=== PATIENT | male | born 1935 | race African-American/Black ===

== ENCOUNTER 2017-03-27 08:21 | Observation (INO) | payer MEDICARE, OTHER ==
[~2017-03-27] VITALS: Ht 170.2 cm; Wt 101.6 kg
[~2017-03-27 08:21] MED LIST: ASPI-1035 PO; ATOR10TA PO; BENA40TA3 PO; CARV3.1242 PO; DOCU-150 PO; FEBU40TA PO; FOLI-43 PO; FOLI0.8T23 PO; GLIP5TAB12 PO; HYDR-4134 PO; MINO2.5T19 PO; NIFE30TA8 PO; NITR0.4T3 SL; TAMS0.4C31 PO; VIT1TABL71 PO
[2017-03-27] MEDS ORDERED: FUROSEMIDE 40MG/4ML VIAL IV STA (09:09)
[2017-03-27] MEDS ORDERED: ALBUTEROL (0.083%) 2.5MG/3ML NEB HHN STA (09:09)
[2017-03-27] MEDS ORDERED: ASPIRIN 81MG TABLET PO STA (09:09)
[2017-03-27] MEDS ORDERED: IPRATROPIUM BROMIDE (0.02%) 0.5MG/2.5ML NEB HHN STA (09:09)
[2017-03-27 10:08] LABS: INR 1.1; PARTIAL THROMBOPLASTIN TIME 28.9 sec (24.0-34.0); PROTHROMBIN TIME 11.1 sec
[2017-03-27 10:09] LABS: CLARITY URINE CLEAR (CLEAR); COLOR URINE YELLOW (YELLOW); GLUCOSE URINE NEGATIVE (NEGATIVE); KETONES URINE NEGATIVE (NEGATIVE); LEUKOCYTE ESTERASE URINE NEGATIVE (NEGATIVE); NITRITE URINE NEGATIVE (NEGATIVE); OCCULT BLOOD URINE NEGATIVE (NEGATIVE); PROTEIN URINE 1+ (NEGATIVE); SPECIFIC GRAVITY URINE 1.015 (1.005-1.030); UROBILINOGEN URINE 0.2 E.U./dL (0.2-1.0)
[2017-03-27 10:12] LABS: CARBON DIOXIDE 20 mEq/L (21-32); CHLORIDE 111 mEq/L (98-107); CREATINE KINASE 53 IU/L (39-308)
[2017-03-27 10:13] LABS: TROPONIN I 0.03 ng/mL (0.00-0.04)
[2017-03-27 10:14] LABS: BASOPHILS % 0.5 % (0.0-2.0); EOSINOPHILS % 0.6 % (0.0-5.0); HEMATOCRIT. 31.1 % (42.0-52.0); HEMOGLOBIN. 9.9 g/dL (14.0-18.0); LYMPHOCYTES % 8.4 % (20.0-50.0); MEAN CORPUSCULAR HEMOGLOBIN 27.6 pg (28.0-32.0); MEAN CORPUSCULAR VOLUME 86.5 fL (80.0-94.0); MEAN PLATELET VOLUME 8.6 fl (7.4-10.4); MONOCYTES % 4.2 % (2.0-8.0); NEUTROPHILS % 86.3 % (40.0-76.0); PLATELET 209 x1000/uL (130-400); RED BLOOD CELL COUNT 3.59 mill/uL (4.7-6.1); RED CELL DISTRIBUTION WIDTH 17.4 % (11.6-14.6)
[2017-03-27] MEDS ORDERED: PIPERACILLIN/TAZ 3.375G PREMIX 50 ML IV ONE (10:30)
[2017-03-27] MEDS ORDERED: VANCOMYCIN 1 G PREMIX 200 ML IV SCH (10:30)
[2017-03-27 13:56] VITALS: BP 188/76
[2017-03-27] MEDS ORDERED: DEXTROSE 50% WATER 50ML SYRINGE IV PRN (16:00)
[2017-03-27] MEDS ORDERED: IPRATROPIUM/ALBUTEROL 0.5-3(2.5)MG/3ML NEB HHN PRN (16:00)
[2017-03-27] MEDS: BLOOD SUGAR DIAGNOSTIC STRIP TEST SCH ×2 (16:51→20:36)
[2017-03-27] MEDS: INSULIN LISPRO 100 UNITS/ML SUBCUT SCH ×2 (16:52→20:36)
[2017-03-27] MEDS: HYDRALAZINE HCL 25MG TABLET PO SCH ×2 (19:21→23:53)
[2017-03-27 20:00] VITALS: BP 193/73
[2017-03-27] MEDS: TAMSULOSIN HCL 0.4MG SR CAPSULE PO SCH (20:37)
[2017-03-27] MEDS: ATORVASTATIN CALCIUM 10MG TABLET PO SCH (20:37)
[2017-03-27] MEDS: CARVEDILOL 3.125 MG TABLET PO SCH (20:37)
[2017-03-28] VITALS: BP 188/80
[2017-03-28 04:00] VITALS: BP 157/80
[2017-03-28] MEDS: HYDRALAZINE HCL 25MG TABLET PO SCH ×3 (05:52→17:48)
[2017-03-28] MEDS: INSULIN LISPRO 100 UNITS/ML SUBCUT SCH ×4 (05:56→20:16)
[2017-03-28] MEDS: BLOOD SUGAR DIAGNOSTIC STRIP TEST SCH ×4 (05:56→20:16)
[2017-03-28] MEDS: NIFEDIPINE XL 30MG TAB PO SCH (08:27)
[2017-03-28] MEDS: FUROSEMIDE 40MG/4ML VIAL IVP SCH (08:27)
[2017-03-28] MEDS: FOLIC ACID 1MG TABLET PO SCH (08:27)
[2017-03-28] MEDS: ASPIRIN 81MG EC TABLET PO SCH (08:28)
[2017-03-28] MEDS: CARVEDILOL 3.125 MG TABLET PO SCH ×2 (08:28→20:16)
[2017-03-28] MEDS: FOLIC ACID/VITAMIN B COMP W-C TABLET PO SCH (08:28)
[2017-03-28] MEDS: DOCUSATE SODIUM 100MG CAPSULE PO SCH (08:28)
[2017-03-28] MEDS: ENOXAPARIN 40MG/0.4ML SYR SUBCUT SCH (08:31)
[2017-03-28 08:45] VITALS: BP 153/76
[2017-03-28] MEDS ORDERED: FEBUXOSTAT 40 MG PO SCH (09:00)
[2017-03-28] MEDS ORDERED: LISINOPRIL 40MG TABLET PO SCH (09:00)
[2017-03-28 09:02] LABS: BASOPHILS % 0.5 % (0.0-2.0); EOSINOPHILS % 1.8 % (0.0-5.0); HEMATOCRIT. 29.9 % (42.0-52.0); HEMOGLOBIN. 9.7 g/dL (14.0-18.0); LYMPHOCYTES % 14.1 % (20.0-50.0); MEAN CORPUSCULAR VOLUME 85.7 fL (80.0-94.0); MEAN PLATELET VOLUME 8.8 fl (7.4-10.4); MONOCYTES % 7.1 % (2.0-8.0); NEUTROPHILS % 76.5 % (40.0-76.0); PLATELET 169 x1000/uL (130-400); RED BLOOD CELL COUNT 3.48 mill/uL (4.7-6.1); RED CELL DISTRIBUTION WIDTH 17.4 % (11.6-14.6)
[2017-03-28 11:50] VITALS: BP 141/65
[2017-03-28] MEDS: BENAZEPRIL 20MG TABLET PO SCH ×2 (14:19→20:14)
[2017-03-28 15:58] VITALS: BP 167/98
[2017-03-28 20:00] VITALS: BP 147/82
[2017-03-28] MEDS: ATORVASTATIN CALCIUM 10MG TABLET PO SCH (20:14)
[2017-03-28] MEDS: TAMSULOSIN HCL 0.4MG SR CAPSULE PO SCH (20:15)
[2017-03-29] MEDS: HYDRALAZINE HCL 25MG TABLET PO SCH ×3 (00:22→12:52)
[2017-03-29] MEDS: INSULIN LISPRO 100 UNITS/ML SUBCUT SCH ×2 (06:08→12:13)
[2017-03-29] MEDS: BLOOD SUGAR DIAGNOSTIC STRIP TEST SCH ×2 (06:08→12:13)
[2017-03-29 07:02] LABS: BASOPHILS % 0.6 % (0.0-2.0); EOSINOPHILS % 3.7 % (0.0-5.0); HEMATOCRIT. 29.1 % (42.0-52.0); HEMOGLOBIN. 9.6 g/dL (14.0-18.0); LYMPHOCYTES % 14.3 % (20.0-50.0); MEAN CORPUSCULAR HEMOGLOBIN 28.3 pg (28.0-32.0); MEAN CORPUSCULAR VOLUME 85.2 fL (80.0-94.0); MONOCYTES % 7.9 % (2.0-8.0); NEUTROPHILS % 73.5 % (40.0-76.0); PLATELET 161 x1000/uL (130-400); RED BLOOD CELL COUNT 3.41 mill/uL (4.7-6.1); RED CELL DISTRIBUTION WIDTH 17.2 % (11.6-14.6)
[2017-03-29 07:41] LABS: CARBON DIOXIDE 22 mEq/L (21-32); CHLORIDE 108 mEq/L (98-107); TROPONIN I 0.04 ng/mL (0.00-0.04)
[2017-03-29 08:00] VITALS: BP 155/69
[2017-03-29] MEDS: FUROSEMIDE 40MG/4ML VIAL IVP SCH (10:18)
[2017-03-29] MEDS: NIFEDIPINE XL 30MG TAB PO SCH (10:19)
[2017-03-29] MEDS: ENOXAPARIN 40MG/0.4ML SYR SUBCUT SCH (10:19)
[2017-03-29] MEDS: FOLIC ACID/VITAMIN B COMP W-C TABLET PO SCH (10:20)
[2017-03-29] MEDS: DOCUSATE SODIUM 100MG CAPSULE PO SCH (10:20)
[2017-03-29] MEDS: FOLIC ACID 1MG TABLET PO SCH (10:20)
[2017-03-29] MEDS: ASPIRIN 81MG EC TABLET PO SCH (10:20)
[2017-03-29] MEDS: BENAZEPRIL 20MG TABLET PO SCH (10:20)
[2017-03-29] MEDS: CARVEDILOL 3.125 MG TABLET PO SCH (10:20)
[2017-03-29 12:00] VITALS: BP 175/80
[2017-03-29 12:35] VITALS: BP 175/80
== END 2017-03-29 13:32 | disposition home or self-care (01) ==
LOC: ER 09:11 → 5WST 10:53 → INTOOBSV 10:53
PROVIDERS: ADMIT Internal Medicine; ATTEND Internal Medicine
DX: I50.23 Acute on chronic systolic (congestive) heart failure (principal); I13.0 Hypertensive heart and chronic kidney disease with heart failure and stage 1 through stage 4 chronic kidney disease, or unspecified chronic kidney disease; N18.9 Chronic kidney disease, unspecified; J44.9 Chronic obstructive pulmonary disease, unspecified; E11.22 Type 2 diabetes mellitus with diabetic chronic kidney disease; Z90.49 Acquired absence of other specified parts of digestive tract; I42.0 Dilated cardiomyopathy; M79.89 Other specified soft tissue disorders; E78.5 Hyperlipidemia, unspecified; R06.01 Orthopnea
CPT/HCPCS: 36415; 71010; 80048; 80053; 81001; 82550; 82962; 83605; 83690; 83735; 83880; 84443; 84484; 85025; 85379; 85610; 85730; 87040; 93005; 93306; 93970; 94640; 96365; 96366; 96367; 96372; 96375; 96376; 99285; G0378; J1650; J1940; J2543; J3370; J7611; J7620

== ENCOUNTER 2017-08-30 20:26 | Inpatient (IN) | payer MEDICARE, OTHER ==
[~2017-08-30] VITALS: Ht 170.2 cm; Wt 98.4 kg
[~2017-08-30 20:26] MED LIST changes: -ASPI-1035 PO; +ASPI-1159 PO; -NITR0.4T3 SL; +NITR0.4T49 SL
[2017-08-30] MEDS ORDERED: FUROSEMIDE 40MG/4ML VIAL IV STA (21:37)
[2017-08-30] MEDS ORDERED: IPRATROPIUM/ALBUTEROL 0.5-3(2.5)MG/3ML NEB HHN ONE (21:45)
[2017-08-30 22:06] LABS: BASOPHILS % 0.2 % (0.0-2.0); EOSINOPHILS % 0.9 % (0.0-5.0); HEMATOCRIT. 33.9 % (42.0-52.0); HEMOGLOBIN. 10.7 g/dL (14.0-18.0); LYMPHOCYTES % 8.9 % (20.0-50.0); MEAN CORPUSCULAR HEMOGLOBIN 26.6 pg (28.0-32.0); MEAN CORPUSCULAR VOLUME 84.1 fL (80.0-94.0); MEAN PLATELET VOLUME 8.2 fl (7.4-10.4); MONOCYTES % 6.2 % (2.0-8.0); NEUTROPHILS % 83.8 % (40.0-76.0); PLATELET 180 x1000/uL (130-400); RED BLOOD CELL COUNT 4.03 mill/uL (4.7-6.1); RED CELL DISTRIBUTION WIDTH 18.5 % (11.6-14.6)
[2017-08-30 22:14] LABS: CARBON DIOXIDE 23 mEq/L (21-32); CHLORIDE 104 mEq/L (98-107)
[2017-08-30 22:16] LABS: INR 1.1; PROTHROMBIN TIME 11.1 sec (9.4-11.6)
[2017-08-30 22:21] LABS: TROPONIN I 0.03 ng/mL (0.00-0.04)
[2017-08-31 08:00] VITALS: BP 170/56
[2017-08-31] MEDS ORDERED: UMEC1DIS IH (09:40)
[2017-08-31] MEDS ORDERED: CARV6.2548 PO (09:42)
[2017-08-31] MEDS ORDERED: SIMV40TA5 PO (09:43)
[2017-08-31] MEDS ORDERED: FURO40TA5 PO (09:44)
[2017-08-31 09:45] VITALS: BP 170/56
[2017-08-31] MEDS ORDERED: NIFE30TA94 PO (09:45)
[2017-08-31] MEDS ORDERED: VIT1TABL71 PO (09:46)
[2017-08-31] MEDS ORDERED: ONDANSETRON HCL 4MG/2ML VIAL IV PRN (10:00)
[2017-08-31] MEDS ORDERED: MORPHINE SULFATE 10 MG/ML CPJ IV PRN (10:00)
[2017-08-31 12:00] VITALS: BP 192/65
[2017-08-31] MEDS: AMLODIPINE 10MG TABLET PO SCH (12:00)
[2017-08-31 15:11] LABS: CREATINE KINASE MB FRACTION 1.6 ng/mL (0.5-3.6); TROPONIN I 0.03 ng/mL (0.00-0.04)
[2017-08-31 16:00] VITALS: BP 192/74
[2017-08-31 18:50] LABS: CREATINE KINASE MB FRACTION 0.9 ng/mL (0.5-3.6); TROPONIN I 0.04 ng/mL (0.00-0.04)
[2017-08-31 20:00] VITALS: BP 171/63
[2017-08-31] MEDS: CLONIDINE 0.1MG TABLET PO PRN (20:40)
[2017-09-01] VITALS: BP 167/65
[2017-09-01 04:00] VITALS: BP 155/56
[2017-09-01] MEDS ORDERED: NIFE60TA64 PO (04:06)
[2017-09-01 08:00] VITALS: BP 166/58
[2017-09-01] MEDS ORDERED: ENOXAPARIN 40MG/0.4ML SYR SUBCUT SCH (09:00)
[2017-09-01] MEDS ORDERED: FUROSEMIDE 40MG/4ML VIAL IVP SCH (09:00)
[2017-09-01] MEDS ORDERED: ASPIRIN 81MG TABLET PO SCH (09:00)
[2017-09-01] MEDS: AMLODIPINE 10MG TABLET PO SCH (10:01)
[2017-09-01] MEDS ORDERED: DEXTROSE 50% WATER 50ML SYRINGE IV PRN (11:45)
[2017-09-01 11:55] VITALS: BP 169/64
[2017-09-01] MEDS: CLONIDINE 0.1MG TABLET PO PRN (11:59)
[2017-09-01] MEDS ORDERED: BLOOD SUGAR DIAGNOSTIC STRIP TEST SCH (12:10)
[2017-09-01] MEDS ORDERED: INSULIN LISPRO 100 UNITS/ML SUBCUT SCH (12:40)
[2017-09-01 12:44] LABS: BASOPHILS % 0.5 % (0.0-2.0); EOSINOPHILS % 1.3 % (0.0-5.0); HEMATOCRIT. 29.5 % (42.0-52.0); HEMOGLOBIN. 9.7 g/dL (14.0-18.0); LYMPHOCYTES % 12.3 % (20.0-50.0); MEAN CORPUSCULAR HEMOGLOBIN 26.9 pg (28.0-32.0); MEAN PLATELET VOLUME 8.9 fl (7.4-10.4); NEUTROPHILS % 78.9 % (40.0-76.0); PLATELET 158 x1000/uL (130-400); RED CELL DISTRIBUTION WIDTH 18.1 % (11.6-14.6)
[2017-09-01] MEDS ORDERED: BENAZEPRIL 20MG TABLET PO SCH (15:30)
[2017-09-01 15:37] VITALS: BP 129/69
[2017-09-01 16:00] VITALS: BP 129/69
== END 2017-09-01 16:38 | disposition home or self-care (01) | DRG 291 ==
LOC: ER 22:18 → 8WST 08-31 00:29
PROVIDERS: ADMIT Internal Medicine; ATTEND Internal Medicine
DX: I13.0 Hypertensive heart and chronic kidney disease with heart failure and stage 1 through stage 4 chronic kidney disease, or unspecified chronic kidney disease (principal); I50.23 Acute on chronic systolic (congestive) heart failure; N17.9 Acute kidney failure, unspecified; E11.22 Type 2 diabetes mellitus with diabetic chronic kidney disease; E66.9 Obesity, unspecified; E78.5 Hyperlipidemia, unspecified; N18.9 Chronic kidney disease, unspecified; N40.0 Benign prostatic hyperplasia without lower urinary tract symptoms; Z90.49 Acquired absence of other specified parts of digestive tract; Z95.0 Presence of cardiac pacemaker; Z79.82 Long term (current) use of aspirin; Z79.899 Other long term (current) drug therapy; Z68.34 Body mass index [BMI] 34.0-34.9, adult
CPT/HCPCS: 36415; 71010; 80048; 80053; 82550; 82553; 82962; 83605; 83880; 84484; 85025; 85610; 85730; 87040; 93005; 94640; 96374; 99285; J1650; J1815; J1940; J7620

== ENCOUNTER 2017-09-19 10:28 | Inpatient (IN) | payer MEDICARE, OTHER ==
[~2017-09-19] VITALS: Ht 170.2 cm; Wt 97.7 kg
[~2017-09-19 10:28] MED LIST changes: +CARV6.2548 PO; +FURO40TA5 PO; +NIFE30TA94 PO; +NIFE60TA64 PO; +SIMV40TA5 PO; +UMEC1DIS IH
[2017-09-19] MEDS ORDERED: NITROGLYCERIN OINT 1GM/INCH UDPKT TD STA (10:52)
[2017-09-19] MEDS ORDERED: FUROSEMIDE 40MG/4ML VIAL IV STA (10:52)
[2017-09-19 11:39] LABS: BASOPHILS % 0.2 % (0.0-2.0); EOSINOPHILS % 0.3 % (0.0-5.0); HEMATOCRIT. 33.4 % (42.0-52.0); HEMOGLOBIN. 10.7 g/dL (14.0-18.0); LYMPHOCYTES % 10.7 % (20.0-50.0); MEAN CORPUSCULAR VOLUME 84.2 fL (80.0-94.0); MEAN PLATELET VOLUME 8.4 fl (7.4-10.4); MONOCYTES % 7.3 % (2.0-8.0); NEUTROPHILS % 81.5 % (40.0-76.0); PLATELET 203 x1000/uL (130-400); RED BLOOD CELL COUNT 3.97 mill/uL (4.7-6.1); RED CELL DISTRIBUTION WIDTH 17.2 % (11.6-14.6)
[2017-09-19 11:47] LABS: INR 1.1; PROTHROMBIN TIME 11.8 sec (9.4-11.6)
[2017-09-19 11:56] LABS: CARBON DIOXIDE 22 mEq/L (21-32); CHLORIDE 105 mEq/L (98-107); TROPONIN I 0.04 ng/mL (0.00-0.04)
[2017-09-19 20:15] VITALS: BP 170/62
[2017-09-19 21:46] VITALS: BP 170/62
[2017-09-19] MEDS ORDERED: CLONIDINE 0.1MG TABLET PO PRN (22:45)
[2017-09-19] MEDS ORDERED: DEXTROSE 50% WATER 50ML SYRINGE IV PRN (22:45)
[2017-09-20] VITALS: BP 151/55
[2017-09-20] MEDS ORDERED: VIT1TABL71 PO (00:54)
[2017-09-20 04:00] VITALS: BP 150/54
[2017-09-20] MEDS ORDERED: INFLUENZA VIRUS VACCINE 0.5ML SYR IM ONE (06:00)
[2017-09-20 06:07] LABS: BASOPHILS % 0.4 % (0.0-2.0); EOSINOPHILS % 0.9 % (0.0-5.0); HEMATOCRIT. 28.6 % (42.0-52.0); HEMOGLOBIN. 9.2 g/dL (14.0-18.0); LYMPHOCYTES % 9.6 % (20.0-50.0); MEAN CORPUSCULAR HEMOGLOBIN 26.9 pg (28.0-32.0); MEAN CORPUSCULAR VOLUME 83.4 fL (80.0-94.0); MEAN PLATELET VOLUME 8.9 fl (7.4-10.4); MONOCYTES % 7.6 % (2.0-8.0); NEUTROPHILS % 81.5 % (40.0-76.0); PLATELET 166 x1000/uL (130-400); RED BLOOD CELL COUNT 3.43 mill/uL (4.7-6.1); RED CELL DISTRIBUTION WIDTH 17.5 % (11.6-14.6)
[2017-09-20] MEDS: FUROSEMIDE 40MG/4ML VIAL IVP SCH ×3 (06:23→21:28)
[2017-09-20] MEDS: HYDRALAZINE HCL 50MG TABLET PO SCH ×3 (06:23→22:32)
[2017-09-20] MEDS: BLOOD SUGAR DIAGNOSTIC STRIP TEST SCH ×4 (06:26→21:27)
[2017-09-20] MEDS: INSULIN LISPRO 100 UNITS/ML SUBCUT SCH ×4 (07:43→21:00)
[2017-09-20 08:00] VITALS: BP 175/63
[2017-09-20] MEDS ORDERED: IPRATROPIUM/ALBUTEROL 0.5-3(2.5)MG/3ML NEB HHN SCH (09:00)
[2017-09-20] MEDS: CARVEDILOL 12.5MG TABLET PO SCH ×2 (09:08→21:29)
[2017-09-20] MEDS: LOSARTAN POTASSIUM 50 MG TABLET PO SCH (09:08)
[2017-09-20] MEDS: ENOXAPARIN 40MG/0.4ML SYR SUBCUT SCH (09:09)
[2017-09-20] MEDS ORDERED: ACETAMINOPHEN 325MG TABLET PO PRN (10:00)
[2017-09-20] MEDS: PIPERACILLIN/TAZOBACTAM 2.25 G in DEXTROSE 5% WATER 50 ML IV SCH ×2 (11:51→20:08)
[2017-09-20 12:00] VITALS: BP 111/57
[2017-09-20] MEDS ORDERED: POTASSIUM CHLORIDE 10MEQ TABLET SR PO SCH (12:30)
[2017-09-20] MEDS ORDERED: FUROSEMIDE 40MG/4ML VIAL IVP NR (12:30)
[2017-09-20 16:00] VITALS: BP 98/47
[2017-09-20] MEDS: IPRATROPIUM/ALBUTEROL 0.5-3(2.5)MG/3ML NEB HHN SCH ×2 (16:26→20:40)
[2017-09-20 20:00] VITALS: BP 115/44
[2017-09-21] VITALS: BP 123/79
[2017-09-21] MEDS: IPRATROPIUM/ALBUTEROL 0.5-3(2.5)MG/3ML NEB HHN SCH ×4 (00:48→12:31)
[2017-09-21 04:00] VITALS: BP 132/53
[2017-09-21] MEDS: PIPERACILLIN/TAZOBACTAM 2.25 G in DEXTROSE 5% WATER 50 ML IV SCH (04:30)
[2017-09-21] MEDS: HYDRALAZINE HCL 50MG TABLET PO SCH (05:51)
[2017-09-21] MEDS: BLOOD SUGAR DIAGNOSTIC STRIP TEST SCH ×2 (05:55→12:47)
[2017-09-21] MEDS: FUROSEMIDE 40MG/4ML VIAL IVP SCH (05:57)
[2017-09-21 07:21] LABS: BASOPHILS % 0.5 % (0.0-2.0); EOSINOPHILS % 2.4 % (0.0-5.0); HEMOGLOBIN. 8.9 g/dL (14.0-18.0); LYMPHOCYTES % 9.8 % (20.0-50.0); MEAN CORPUSCULAR VOLUME 82.5 fL (80.0-94.0); MEAN PLATELET VOLUME 8.9 fl (7.4-10.4); MONOCYTES % 4.4 % (2.0-8.0); NEUTROPHILS % 82.9 % (40.0-76.0); PLATELET 150 x1000/uL (130-400); RED BLOOD CELL COUNT 3.28 mill/uL (4.7-6.1); RED CELL DISTRIBUTION WIDTH 17.3 % (11.6-14.6)
[2017-09-21 08:00] VITALS: BP 135/50
[2017-09-21] MEDS: INSULIN LISPRO 100 UNITS/ML SUBCUT SCH (08:10)
[2017-09-21 09:25] LABS: CARBON DIOXIDE 23 mEq/L (21-32); CHLORIDE 103 mEq/L (98-107)
[2017-09-21] MEDS: LOSARTAN POTASSIUM 50 MG TABLET PO SCH (09:33)
[2017-09-21] MEDS: CARVEDILOL 12.5MG TABLET PO SCH (09:33)
[2017-09-21] MEDS: ENOXAPARIN 40MG/0.4ML SYR SUBCUT SCH (09:34)
[2017-09-21] MEDS ORDERED: PIPERACILLIN/TAZ 3.375G PREMIX 50 ML IV SCH (10:00)
[2017-09-21 12:00] VITALS: BP 139/60
[2017-09-21 14:11] VITALS: BP 139/59
== END 2017-09-21 14:20 | disposition home or self-care (01) | DRG 291 ==
LOC: ER 10:28 → 7WST 12:32 → EDBEDREQ 12:34 → ENRESERV 19:16
PROVIDERS: ADMIT Internal Medicine; ATTEND Internal Medicine
DX: I13.0 Hypertensive heart and chronic kidney disease with heart failure and stage 1 through stage 4 chronic kidney disease, or unspecified chronic kidney disease (principal); I50.23 Acute on chronic systolic (congestive) heart failure; E11.22 Type 2 diabetes mellitus with diabetic chronic kidney disease; D64.9 Anemia, unspecified; J44.9 Chronic obstructive pulmonary disease, unspecified; E66.9 Obesity, unspecified; I25.10 Atherosclerotic heart disease of native coronary artery without angina pectoris; I25.5 Ischemic cardiomyopathy; N18.9 Chronic kidney disease, unspecified; Z87.891 Personal history of nicotine dependence; Z90.49 Acquired absence of other specified parts of digestive tract; Z91.14 Patient's other noncompliance with medication regimen; Z95.810 Presence of automatic (implantable) cardiac defibrillator; Z79.899 Other long term (current) drug therapy
CPT/HCPCS: 36415; 71010; 80048; 80053; 80061; 82962; 83036; 83605; 83690; 83880; 84443; 84484; 85025; 85610; 87040; 90686; 93005; 94640; 94664; 96374; 99285; C1893; J1650; J1815; J1940; J2543; J7040; J7060; J7620

== ENCOUNTER 2018-05-01 10:59 | Observation (INO) | payer MEDICARE, MEDICAID ==
[~2018-05-01] VITALS: Ht 170.2 cm; Wt 97.1 kg
[~2018-05-01 10:59] MED LIST changes: -BENA40TA3 PO; -CARV3.1242 PO; -CARV6.2548 PO; -GLIP5TAB12 PO; -HYDR-4134 PO; -MINO2.5T19 PO; -NIFE30TA8 PO; -NIFE30TA94 PO; -NIFE60TA64 PO; -UMEC1DIS IH
[2018-05-01 12:52] LABS: CHLORIDE 104 mEq/L (98-107); EOSINOPHILS % 3.7 % (0.0-5.0); HEMATOCRIT. 29.7 % (42.0-52.0); HEMOGLOBIN. 9.3 g/dL (14.0-18.0); MEAN CORPUSCULAR HEMOGLOBIN 24.9 pg (28.0-32.0); MEAN CORPUSCULAR VOLUME 79.5 fL (80.0-94.0); MEAN PLATELET VOLUME 7.5 fl (7.4-10.4); MONOCYTES % 8.3 % (2.0-8.0); PLATELET 181 x1000/uL (130-400); RED BLOOD CELL COUNT 3.74 mill/uL (4.7-6.1); RED CELL DISTRIBUTION WIDTH 22.8 % (11.6-14.6)
[2018-05-01 12:54] LABS: INR 1.2; PARTIAL THROMBOPLASTIN TIME 28.5 sec (23.4-31.0); PROTHROMBIN TIME 12.4 sec (9.4-11.6)
[2018-05-01 13:35] LABS: PLATELET ESTIMATE NORMAL
[2018-05-01] MEDS ORDERED: NA PHOS,M-B/NA PHOS,DI-BA ENEMA 118ML PR PRN (14:30)
[2018-05-01] MEDS ORDERED: IPRATROPIUM/ALBUTEROL 0.5-3(2.5)MG/3ML NEB INH PRN (14:30)
[2018-05-01] MEDS ORDERED: ONDANSETRON HCL 4MG/2ML VIAL IV PRN (14:30)
[2018-05-01] MEDS ORDERED: DIPHENHYDRAMINE 50MG/ML VIAL IV PRN (14:30)
[2018-05-01] MEDS ORDERED: HYDROCODONE/ACETAMINOPHEN 5/325MG TABLET PO PRN (14:30)
[2018-05-01] MEDS ORDERED: ACETAMINOPHEN 325MG TABLET PO PRN (14:30)
[2018-05-01] MEDS ORDERED: MAGNESIUM/ALUMINUM HYDROXIDE/SIMETHICONE 30ML UDC PO PRN (14:30)
[2018-05-01] MEDS ORDERED: CLONIDINE 0.1MG TABLET PO PRN (14:30)
[2018-05-01] MEDS ORDERED: ACETAMINOPHEN 650MG SUPP PR PRN (14:30)
[2018-05-01 15:03] LABS: CLARITY URINE CLEAR (CLEAR); COLOR URINE YELLOW (YELLOW); KETONES URINE NEGATIVE (NEGATIVE); LEUKOCYTE ESTERASE URINE NEGATIVE (NEGATIVE); NITRITE URINE NEGATIVE (NEGATIVE); OCCULT BLOOD URINE NEGATIVE (NEGATIVE); PH URINE 6.5 (4.5-8.0); PROTEIN URINE NEGATIVE (NEGATIVE); SPECIFIC GRAVITY URINE 1.008 (1.005-1.030)
[2018-05-01 15:31] LABS: *AMPHETAMINES SCREEN URINE NEGATIVE (NEGATIVE)
[2018-05-01 15:32] LABS: *BARBITURATES SCREEN URINE NEGATIVE (NEGATIVE); *BENZODIAZEPINES SCREEN URINE NEGATIVE (NEGATIVE); *COCAINE SCREEN URINE NEGATIVE (NEGATIVE); CANNABINOID URINE SCREEN NEGATIVE (NEGATIVE); METHADONE URINE SCREEN NEGATIVE (NEGATIVE); OPIATES URINE SCREEN NEGATIVE (NEGATIVE); PHENCYCLIDINE URINE SCREEN NEGATIVE (NEGATIVE)
[2018-05-01] MEDS ORDERED: FUROSEMIDE 40MG/4ML VIAL IVP NR (15:45)
[2018-05-01] MEDS ORDERED: DEXTROSE 50% WATER 50ML SYRINGE IV PRN (16:00)
[2018-05-01] MEDS: BLOOD SUGAR DIAGNOSTIC STRIP TEST SCH ×2 (16:45→21:04)
[2018-05-01] MEDS: INSULIN LISPRO 100 UNITS/ML SUBCUT SCH ×2 (17:15→21:00)
[2018-05-01 17:33] VITALS: BP 163/74
[2018-05-01 18:00] VITALS: BP 148/70
[2018-05-01] MEDS: ALLOPURINOL 100 MG TABLET PO SCH (18:46)
[2018-05-01 20:00] VITALS: BP 157/74
[2018-05-01] MEDS ORDERED: TAMSULOSIN HCL 0.4MG SR CAPSULE PO SCH (21:00)
[2018-05-01] MEDS ORDERED: ATORVASTATIN CALCIUM 10MG TABLET PO SCH (21:00)
[2018-05-02] VITALS: BP 154/58
[2018-05-02 04:00] VITALS: BP 152/64
[2018-05-02] MEDS: BLOOD SUGAR DIAGNOSTIC STRIP TEST SCH ×3 (06:26→17:38)
[2018-05-02 06:31] LABS: BASOPHILS % 0.9 % (0.0-2.0); EOSINOPHILS % 6.1 % (0.0-5.0); HEMATOCRIT. 31.9 % (42.0-52.0); HEMOGLOBIN. 9.8 g/dL (14.0-18.0); LYMPHOCYTES % 18.2 % (20.0-50.0); MEAN CORPUSCULAR HEMOGLOBIN 24.7 pg (28.0-32.0); MEAN CORPUSCULAR VOLUME 80.5 fL (80.0-94.0); MEAN PLATELET VOLUME 8.1 fl (7.4-10.4); MONOCYTES % 7.2 % (2.0-8.0); NEUTROPHILS % 67.6 % (40.0-76.0); PLATELET 188 x1000/uL (130-400); RED BLOOD CELL COUNT 3.96 mill/uL (4.7-6.1); RED CELL DISTRIBUTION WIDTH 23.3 % (11.6-14.6)
[2018-05-02] MEDS: INSULIN LISPRO 100 UNITS/ML SUBCUT SCH ×2 (06:40→12:26)
[2018-05-02 06:45] LABS: CHLORIDE 106 mEq/L (98-107)
[2018-05-02 06:58] LABS: LDL CHOLESTEROL 64 mg/dL (5-100)
[2018-05-02 07:03] LABS: HDL CHOLESTEROL 40 mg/dL (40-59)
[2018-05-02 08:00] VITALS: BP 132/72
[2018-05-02] MEDS ORDERED: DOCUSATE SODIUM SUGAR FREE 100MG/10ML UDC NG SCH (09:00)
[2018-05-02] MEDS ORDERED: FOLIC ACID 1MG TABLET PO SCH (09:00)
[2018-05-02] MEDS ORDERED: ASPIRIN 81MG TABLET PO SCH (09:00)
[2018-05-02] MEDS ORDERED: FUROSEMIDE 40MG/4ML VIAL IVP SCH (09:00)
[2018-05-02] MEDS ORDERED: FOLIC ACID/VITAMIN B COMP W-C TABLET PO SCH (09:00)
[2018-05-02] MEDS: ALLOPURINOL 100 MG TABLET PO SCH (09:27)
[2018-05-02 12:00] VITALS: BP 179/79
[2018-05-02] MEDS ORDERED: FUROSEMIDE 40MG/4ML VIAL IVP NR (12:45)
[2018-05-02] MEDS ORDERED: CLOTRIMAZOLE 1% SOLUTION 10ML TOP ONE (12:45)
[2018-05-02] MEDS ORDERED: CLOTRIMAZOLE 1% CREAM 30GM TOP NR (13:15)
[2018-05-02 16:00] VITALS: BP 156/70
[2018-05-02 16:43] VITALS: BP 156/70
== END 2018-05-02 18:15 | disposition home or self-care (01) ==
LOC: ER 11:49 → INTOOBSV 13:01 → 5WST 13:01 → EDBEDREQ 13:03 → EDBEDREQTM 13:03 → ENRESERV 15:54 → 5WST 17:02
PROVIDERS: ADMIT Internal Medicine; ATTEND Internal Medicine
DX: I87.2 Venous insufficiency (chronic) (peripheral) (principal); L97.919 Non-pressure chronic ulcer of unspecified part of right lower leg with unspecified severity; L97.929 Non-pressure chronic ulcer of unspecified part of left lower leg with unspecified severity; L97.928 Non-pressure chronic ulcer of unspecified part of left lower leg with other specified severity; M10.9 Gout, unspecified; N40.0 Benign prostatic hyperplasia without lower urinary tract symptoms; E66.9 Obesity, unspecified; E78.5 Hyperlipidemia, unspecified; I25.10 Atherosclerotic heart disease of native coronary artery without angina pectoris; E11.51 Type 2 diabetes mellitus with diabetic peripheral angiopathy without gangrene; E11.22 Type 2 diabetes mellitus with diabetic chronic kidney disease; I13.0 Hypertensive heart and chronic kidney disease with heart failure and stage 1 through stage 4 chronic kidney disease, or unspecified chronic kidney disease; N18.9 Chronic kidney disease, unspecified; I50.43 Acute on chronic combined systolic (congestive) and diastolic (congestive) heart failure; D64.9 Anemia, unspecified; E46 Unspecified protein-calorie malnutrition; N17.9 Acute kidney failure, unspecified; Z91.19 Patient's noncompliance with other medical treatment and regimen; Z90.49 Acquired absence of other specified parts of digestive tract; Z91.14 Patient's other noncompliance with medication regimen; Z95.0 Presence of cardiac pacemaker; Z87.891 Personal history of nicotine dependence
CPT/HCPCS: 36415; 71045; 80053; 80061; 80305; 81003; 82962; 83605; 83880; 84443; 84484; 85025; 85610; 85730; 87040; 87070; 87077; 87186; 87205; 93005; 93923; 93970; 96372; 96374; 96376; 97162; 99291; G0378; G8978; G8979; G8980; J1815; J1940

== ENCOUNTER 2018-08-07 13:15 | Inpatient (IN) | payer MEDICARE, MEDICAID ==
[~2018-08-07] VITALS: Ht 165.1 cm; Wt 113.4 kg
[2018-08-07 14:10] LABS: BASOPHILS % 1.4 % (0.0-2.0); EOSINOPHILS % 4.3 % (0.0-5.0); HEMATOCRIT. 26.1 % (42.0-52.0); HEMOGLOBIN. 8.2 g/dL (14.0-18.0); LYMPHOCYTES % 16.5 % (20.0-50.0); MEAN CORPUSCULAR HEMOGLOBIN 24.8 pg (28.0-32.0); MEAN CORPUSCULAR VOLUME 78.8 fL (80.0-94.0); MEAN PLATELET VOLUME 8.7 fl (7.4-10.4); MONOCYTES % 9.1 % (2.0-8.0); NEUTROPHILS % 68.7 % (40.0-76.0); PLATELET 171 x1000/uL (130-400); RED BLOOD CELL COUNT 3.32 mill/uL (4.7-6.1); RED CELL DISTRIBUTION WIDTH 21.3 % (11.6-14.6)
[2018-08-07 14:18] LABS: CHLORIDE 103 mEq/L (98-107); INR 1.2; PROTHROMBIN TIME 12.2 sec (9.1-11.1)
[2018-08-07] MEDS ORDERED: ASPIRIN 81MG TABLET PO ONE (15:15)
[2018-08-07] MEDS ORDERED: FUROSEMIDE 20MG/2ML VIAL IVP ONE (15:15)
[2018-08-07 15:22] LABS: CLARITY URINE CLEAR (CLEAR); COLOR URINE YELLOW (YELLOW); KETONES URINE NEGATIVE (NEGATIVE); LEUKOCYTE ESTERASE URINE NEGATIVE (NEGATIVE); NITRITE URINE NEGATIVE (NEGATIVE); OCCULT BLOOD URINE NEGATIVE (NEGATIVE); PROTEIN URINE TRACE (NEGATIVE)
[2018-08-07 16:00] VITALS: BP 152/74
[2018-08-07 16:28] VITALS: BP 152/74
[2018-08-07] MEDS ORDERED: ONDANSETRON HCL 4MG/2ML INJ IV PRN (16:45)
[2018-08-07] MEDS ORDERED: ACETAMINOPHEN 325MG TABLET PO PRN (16:45)
[2018-08-07] MEDS ORDERED: IPRATROPIUM/ALBUTEROL 0.5-3(2.5)MG/3ML NEB INH PRN (16:45)
[2018-08-07] MEDS ORDERED: HYDROCODONE/ACETAMINOPHEN 5/325MG TABLET PO PRN (16:45)
[2018-08-07 17:11] VITALS: BP 152/74
[2018-08-07] MEDS ORDERED: ENOXAPARIN 30MG/0.3ML SYR SUBCUT SCH (17:15)
[2018-08-07] MEDS: FUROSEMIDE 40MG/4ML VIAL IV SCH (18:03)
[2018-08-07] MEDS: FOLIC ACID/VITAMIN B COMP W-C TABLET PO SCH (18:09)
[2018-08-07 20:00] VITALS: BP 155/62
[2018-08-07] MEDS: TAMSULOSIN HCL 0.4MG SR CAPSULE PO SCH (20:35)
[2018-08-07] MEDS: ATORVASTATIN CALCIUM 10MG TABLET PO SCH (20:35)
[2018-08-07 23:04] LABS: CREATINE KINASE 79 IU/L (39-308)
[2018-08-08] VITALS (10 sets, daily range): BP systolic 128–166; BP diastolic 53–100
[2018-08-08] MEDS: CLONIDINE 0.1MG TABLET PO PRN (02:22)
[2018-08-08 07:28] LABS: BASOPHILS % 0.8 % (0.0-2.0); EOSINOPHILS % 4.8 % (0.0-5.0); HEMATOCRIT. 24.8 % (42.0-52.0); HEMOGLOBIN. 7.8 g/dL (14.0-18.0); LYMPHOCYTES % 20.1 % (20.0-50.0); MEAN CORPUSCULAR HEMOGLOBIN 24.6 pg (28.0-32.0); MEAN CORPUSCULAR VOLUME 77.9 fL (80.0-94.0); MEAN PLATELET VOLUME 8.2 fl (7.4-10.4); MONOCYTES % 8.9 % (2.0-8.0); NEUTROPHILS % 65.4 % (40.0-76.0); PLATELET 154 x1000/uL (130-400); RED BLOOD CELL COUNT 3.18 mill/uL (4.7-6.1); RED CELL DISTRIBUTION WIDTH 21.1 % (11.6-14.6)
[2018-08-08 07:55] LABS: CHLORIDE 105 mEq/L (98-107)
[2018-08-08 08:09] LABS: CREATINE KINASE 39 IU/L (39-308)
[2018-08-08 08:10] LABS: HDL CHOLESTEROL 33 mg/dL (40-59)
[2018-08-08 08:13] LABS: LDL CHOLESTEROL 70 mg/dL (5-100)
[2018-08-08] MEDS: FOLIC ACID/VITAMIN B COMP W-C TABLET PO SCH (08:40)
[2018-08-08] MEDS: FUROSEMIDE 40MG/4ML VIAL IV SCH (08:41)
[2018-08-08] MEDS ORDERED: ASPIRIN 81MG EC TABLET PO SCH (09:00)
[2018-08-08] MEDS ORDERED: ENOXAPARIN 40MG/0.4ML SYR SUBCUT SCH (16:00)
[2018-08-08] MEDS ORDERED: DEXTROSE 50% WATER 50ML SYRINGE IV PRN (16:15)
[2018-08-08] MEDS: BLOOD SUGAR DIAGNOSTIC STRIP TEST SCH ×2 (17:40→20:25)
[2018-08-08] MEDS: ALLOPURINOL 100 MG TABLET PO SCH (17:44)
[2018-08-08] MEDS: INSULIN LISPRO 100 UNITS/ML SUBCUT SCH ×2 (17:49→20:25)
[2018-08-08] MEDS: ATORVASTATIN CALCIUM 10MG TABLET PO SCH (20:25)
[2018-08-08] MEDS: TAMSULOSIN HCL 0.4MG SR CAPSULE PO SCH (20:26)
[2018-08-09] VITALS (8 sets, daily range): BP systolic 109–158; BP diastolic 60–74
[2018-08-09 07:34] LABS: BASOPHILS % 0.7 % (0.0-2.0); EOSINOPHILS % 5.5 % (0.0-5.0); HEMATOCRIT. 26.3 % (42.0-52.0); HEMOGLOBIN. 8.5 g/dL (14.0-18.0); LYMPHOCYTES % 17.5 % (20.0-50.0); MEAN CORPUSCULAR HEMOGLOBIN 25.4 pg (28.0-32.0); MEAN CORPUSCULAR VOLUME 78.4 fL (80.0-94.0); MEAN PLATELET VOLUME 8.2 fl (7.4-10.4); MONOCYTES % 8.4 % (2.0-8.0); NEUTROPHILS % 67.9 % (40.0-76.0); PLATELET 151 x1000/uL (130-400); RED BLOOD CELL COUNT 3.36 mill/uL (4.7-6.1); RED CELL DISTRIBUTION WIDTH 21.5 % (11.6-14.6)
[2018-08-09] MEDS: BLOOD SUGAR DIAGNOSTIC STRIP TEST SCH ×4 (07:40→21:50)
[2018-08-09] MEDS: FUROSEMIDE 40MG/4ML VIAL IV SCH (07:59)
[2018-08-09] MEDS: INSULIN LISPRO 100 UNITS/ML SUBCUT SCH ×4 (07:59→21:00)
[2018-08-09] MEDS: ALLOPURINOL 100 MG TABLET PO SCH ×2 (08:00→17:15)
[2018-08-09] MEDS: FOLIC ACID/VITAMIN B COMP W-C TABLET PO SCH (08:00)
[2018-08-09] MEDS ORDERED: MECLIZINE 25MG TABLET PO PRN (12:45)
[2018-08-09] MEDS ORDERED: AMLODIPINE 2.5MG TABLET PO NR (13:00)
[2018-08-09] MEDS: ASCORBIC ACID 250 MG TABLET PO SCH (17:15)
[2018-08-09] MEDS: ATORVASTATIN CALCIUM 10MG TABLET PO SCH (21:55)
[2018-08-09] MEDS: TAMSULOSIN HCL 0.4MG SR CAPSULE PO SCH (21:55)
[2018-08-10 00:17] VITALS: BP 129/69
[2018-08-10 04:00] VITALS: BP 150/61
[2018-08-10] MEDS: BLOOD SUGAR DIAGNOSTIC STRIP TEST SCH ×4 (05:18→20:29)
[2018-08-10 08:00] VITALS: BP 149/64
[2018-08-10] MEDS: INSULIN LISPRO 100 UNITS/ML SUBCUT SCH ×4 (08:10→20:29)
[2018-08-10] MEDS: FUROSEMIDE 40MG/4ML VIAL IV SCH (08:26)
[2018-08-10] MEDS: ASCORBIC ACID 250 MG TABLET PO SCH ×2 (08:27→17:05)
[2018-08-10] MEDS: ALLOPURINOL 100 MG TABLET PO SCH ×2 (08:27→17:05)
[2018-08-10] MEDS: ZINC SULFATE 220 MG ( 50 ) CAPSULE PO SCH (08:27)
[2018-08-10] MEDS: FOLIC ACID/VITAMIN B COMP W-C TABLET PO SCH (08:27)
[2018-08-10] MEDS: AMLODIPINE 2.5MG TABLET PO SCH (08:34)
[2018-08-10 08:36] LABS: BASOPHILS % 0.6 % (0.0-2.0); EOSINOPHILS % 5.6 % (0.0-5.0); HEMATOCRIT. 26.5 % (42.0-52.0); HEMOGLOBIN. 8.5 g/dL (14.0-18.0); LYMPHOCYTES % 16.9 % (20.0-50.0); MEAN CORPUSCULAR HEMOGLOBIN 25.5 pg (28.0-32.0); MEAN CORPUSCULAR VOLUME 78.9 fL (80.0-94.0); MEAN PLATELET VOLUME 8.2 fl (7.4-10.4); MONOCYTES % 8.5 % (2.0-8.0); NEUTROPHILS % 68.4 % (40.0-76.0); PLATELET 146 x1000/uL (130-400); RED BLOOD CELL COUNT 3.35 mill/uL (4.7-6.1); RED CELL DISTRIBUTION WIDTH 21.9 % (11.6-14.6)
[2018-08-10 12:00] VITALS: BP_SYST 136; BP_SYST 144; BP_SYST 159; BP_DIAS 61; BP_DIAS 66; BP_DIAS 80
[2018-08-10 16:00] VITALS: BP 156/77
[2018-08-10 20:00] VITALS: BP 154/77
[2018-08-10] MEDS: ATORVASTATIN CALCIUM 10MG TABLET PO SCH (20:24)
[2018-08-10] MEDS: TAMSULOSIN HCL 0.4MG SR CAPSULE PO SCH (20:26)
[2018-08-11] VITALS (7 sets, daily range): BP systolic 114–166; BP diastolic 50–71
[2018-08-11] MEDS: BLOOD SUGAR DIAGNOSTIC STRIP TEST SCH ×4 (07:23→21:25)
[2018-08-11] MEDS: INSULIN LISPRO 100 UNITS/ML SUBCUT SCH ×4 (07:24→21:00)
[2018-08-11 07:36] LABS: HEMATOCRIT 28.6 % (42.0-52.0); HEMOGLOBIN 9.3 g/dL (14.0-18.0); MEAN CORPUSCULAR HEMOGLOBIN 25.7 pg (28.0-32.0); MEAN CORPUSCULAR VOLUME 79.4 fL (80.0-94.0); PLATELET 165 x1000/uL (130-400); RED CELL DISTRIBUTION WIDTH 22.1 % (11.6-14.6)
[2018-08-11] MEDS: FOLIC ACID/VITAMIN B COMP W-C TABLET PO SCH (08:26)
[2018-08-11] MEDS: ASCORBIC ACID 250 MG TABLET PO SCH ×2 (08:26→16:45)
[2018-08-11] MEDS: CLONIDINE 0.1MG TABLET PO PRN (08:27)
[2018-08-11] MEDS: ZINC SULFATE 220 MG ( 50 ) CAPSULE PO SCH (08:27)
[2018-08-11] MEDS: AMLODIPINE 2.5MG TABLET PO SCH (08:27)
[2018-08-11] MEDS: ALLOPURINOL 100 MG TABLET PO SCH ×2 (08:27→16:45)
[2018-08-11] MEDS: FUROSEMIDE 40MG/4ML VIAL IV SCH (08:27)
[2018-08-11] MEDS ORDERED: LEVOFLOXACIN 500MG PREMIX 100 ML IV SCH ×2 (10:45→12:00)
[2018-08-11] MEDS: LOSARTAN POTASSIUM 50 MG TABLET PO SCH (12:00)
[2018-08-11] MEDS: TAMSULOSIN HCL 0.4MG SR CAPSULE PO SCH (21:25)
[2018-08-11] MEDS: ATORVASTATIN CALCIUM 10MG TABLET PO SCH (21:25)
[2018-08-12] VITALS (7 sets, daily range): BP systolic 115–166; BP diastolic 52–67
[2018-08-12] MEDS: BLOOD SUGAR DIAGNOSTIC STRIP TEST SCH ×3 (05:10→17:40)
[2018-08-12 07:31] LABS: HEMATOCRIT 26.5 % (42.0-52.0); HEMOGLOBIN 8.5 g/dL (14.0-18.0); MEAN CORPUSCULAR HEMOGLOBIN 25.5 pg (28.0-32.0); MEAN CORPUSCULAR VOLUME 79.4 fL (80.0-94.0); PLATELET 146 x1000/uL (130-400); RED BLOOD CELL COUNT 3.33 mill/uL (4.7-6.1); RED CELL DISTRIBUTION WIDTH 21.6 % (11.6-14.6)
[2018-08-12] MEDS: INSULIN LISPRO 100 UNITS/ML SUBCUT SCH ×3 (07:39→17:58)
[2018-08-12] MEDS: FOLIC ACID/VITAMIN B COMP W-C TABLET PO SCH (08:57)
[2018-08-12] MEDS: AMLODIPINE 2.5MG TABLET PO SCH (08:57)
[2018-08-12] MEDS: ALLOPURINOL 100 MG TABLET PO SCH ×2 (08:57→17:58)
[2018-08-12] MEDS: ZINC SULFATE 220 MG ( 50 ) CAPSULE PO SCH (08:57)
[2018-08-12] MEDS: LOSARTAN POTASSIUM 50 MG TABLET PO SCH (08:57)
[2018-08-12] MEDS: FUROSEMIDE 40MG/4ML VIAL IV SCH (08:57)
[2018-08-12] MEDS: ASCORBIC ACID 250 MG TABLET PO SCH ×2 (09:10→17:58)
[2018-08-12] MEDS ORDERED: LEVOFLOXACIN 250MG PREMIX 50 ML IV SCH (11:00)
== END 2018-08-12 20:14 | DRG 291 ==
LOC: ER 13:33 → EDBEDREQ 14:42 → 7WST 15:22 → EDBEDREQTM 15:26 → EDBEDREQ 15:26 → ENRESERV 15:38 → 7WST 08-11 10:45
PROVIDERS: ADMIT Internal Medicine; ATTEND Internal Medicine
PROC: 30233N1 Transfusion of Nonautologous Red Blood Cells into Peripheral Vein, Percutaneous Approach (ICD-10-PCS; principal; 2018-08-08)
DX: I13.0 Hypertensive heart and chronic kidney disease with heart failure and stage 1 through stage 4 chronic kidney disease, or unspecified chronic kidney disease (principal); I50.23 Acute on chronic systolic (congestive) heart failure; J44.1 Chronic obstructive pulmonary disease with (acute) exacerbation; Z68.41 Body mass index [BMI] 40.0-44.9, adult; N17.9 Acute kidney failure, unspecified; L97.909 Non-pressure chronic ulcer of unspecified part of unspecified lower leg with unspecified severity; I25.5 Ischemic cardiomyopathy; Z87.891 Personal history of nicotine dependence; M10.9 Gout, unspecified; D63.8 Anemia in other chronic diseases classified elsewhere; E66.9 Obesity, unspecified; E87.5 Hyperkalemia; E11.22 Type 2 diabetes mellitus with diabetic chronic kidney disease; E11.51 Type 2 diabetes mellitus with diabetic peripheral angiopathy without gangrene; E11.622 Type 2 diabetes mellitus with other skin ulcer; E66.09 Other obesity due to excess calories; I25.10 Atherosclerotic heart disease of native coronary artery without angina pectoris; I34.0 Nonrheumatic mitral (valve) insufficiency; N18.9 Chronic kidney disease, unspecified; N40.0 Benign prostatic hyperplasia without lower urinary tract symptoms; R79.1 Abnormal coagulation profile; Z90.49 Acquired absence of other specified parts of digestive tract; Z95.0 Presence of cardiac pacemaker; I65.29 Occlusion and stenosis of unspecified carotid artery; E78.5 Hyperlipidemia, unspecified
CPT/HCPCS: 36415; 70450; 71045; 80048; 80053; 80061; 81003; 82550; 82962; 83036; 83690; 83880; 84439; 84443; 84484; 84550; 85025; 85027; 85610; 86850; 86900; 86920; 87040; 87070; 87077; 87186; 87205; 93005; 93306; 93880; 93970; 96374; 97116; 97162; 99285; A6261; J1650; J1815; J1940; J1956; J7040; J7050; P9016

== ENCOUNTER 2018-11-01 14:46 | Inpatient (IN) | payer MEDICARE, MEDICAID ==
[~2018-11-01] VITALS: Ht 170.2 cm; Wt 109.8 kg
[2018-11-01] MEDS ORDERED: NITROGLYCERIN OINT 1GM/INCH UDPKT TD ONE (15:30)
[2018-11-01] MEDS ORDERED: FUROSEMIDE 40MG/4ML VIAL IVP ONE (15:30)
[2018-11-01 16:10] LABS: CHLORIDE 105 mEq/L (98-107); INR 1.3; PROTHROMBIN TIME 12.9 sec (9.1-11.1)
[2018-11-01 16:20] LABS: BASOPHILS % 0.5 % (0.0-2.0); EOSINOPHILS % 1.6 % (0.0-5.0); HEMATOCRIT. 29.8 % (42.0-52.0); HEMOGLOBIN. 9.5 g/dL (14.0-18.0); LYMPHOCYTES % 23.5 % (20.0-50.0); MEAN CORPUSCULAR HEMOGLOBIN 27.3 pg (28.0-32.0); MEAN CORPUSCULAR VOLUME 85.1 fL (80.0-94.0); MEAN PLATELET VOLUME 9.4 fl (7.4-10.4); MONOCYTES % 13.7 % (2.0-8.0); NEUTROPHILS % 60.7 % (40.0-76.0); PLATELET 138 x1000/uL (130-400); RED CELL DISTRIBUTION WIDTH 27.5 % (11.6-14.6)
[2018-11-01 16:42] LABS: PLATELET ESTIMATE NORMAL
[2018-11-02] VITALS (13 sets, daily range): BP systolic 128–159; BP diastolic 47–80
[2018-11-02] MEDS ORDERED: DEXTROSE 50% WATER 50ML SYRINGE IV PRN (01:15)
[2018-11-02] MEDS ORDERED: NITROGLYCERIN 0.4MG TABLET SL SL PRN (01:30)
[2018-11-02] MEDS: IPRATROPIUM/ALBUTEROL 0.5-3(2.5)MG/3ML NEB HHN SCH ×5 (04:20→20:07)
[2018-11-02] MEDS: PANTOPRAZOLE 40MG DR TABLET PO SCH (06:41)
[2018-11-02] MEDS: FUROSEMIDE 40MG/4ML VIAL IVP SCH ×3 (06:42→21:02)
[2018-11-02 07:08] LABS: BASOPHILS % 0.4 % (0.0-2.0); EOSINOPHILS % 2.1 % (0.0-5.0); HEMATOCRIT. 25.8 % (42.0-52.0); HEMOGLOBIN. 8.4 g/dL (14.0-18.0); LYMPHOCYTES % 14.4 % (20.0-50.0); MEAN CORPUSCULAR HEMOGLOBIN 27.2 pg (28.0-32.0); MEAN CORPUSCULAR VOLUME 83.8 fL (80.0-94.0); MEAN PLATELET VOLUME 9.1 fl (7.4-10.4); MONOCYTES % 14.9 % (2.0-8.0); NEUTROPHILS % 68.2 % (40.0-76.0); PLATELET 113 x1000/uL (130-400); RED BLOOD CELL COUNT 3.08 mill/uL (4.7-6.1); RED CELL DISTRIBUTION WIDTH 26.6 % (11.6-14.6)
[2018-11-02] MEDS: INSULIN LISPRO 100 UNITS/ML SUBCUT SCH ×4 (07:58→20:38)
[2018-11-02] MEDS: BLOOD SUGAR DIAGNOSTIC STRIP TEST SCH ×4 (07:58→20:45)
[2018-11-02] MEDS: FOLIC ACID/VITAMIN B COMP W-C TABLET PO SCH (08:01)
[2018-11-02] MEDS: DOCUSATE SODIUM 100MG CAPSULE PO SCH ×2 (08:01→17:16)
[2018-11-02] MEDS: ASPIRIN 81MG TABLET PO SCH (08:01)
[2018-11-02] MEDS: FOLIC ACID 1MG TABLET PO SCH (08:02)
[2018-11-02] MEDS: HEPARIN 5000 UNITS/ML VIAL SUBCUT SCH ×2 (08:02→21:46)
[2018-11-02 11:40] LABS: BG CARBOXYHEMOGLOBIN 0.4 % (0.5-1.5); BG DEOXYHEMOGLOBIN 4.5 % (0.0-5.0); BG FRACTION INSPIRED OXYGEN 30; BG HCO3 ACT 21.7 mmol/L (22.0-26.0); BG METHEMOGLOBIN 0.1 % (0.0-1.5); BG OXYGEN SATURATION 95.5 % (92.0-98.5); BG PCO2 37.6 mmHg (35.0-45.0); BG PO2 82.9 mmHg (75.0-100.0); BG SAMPLE SITE RIGHT BRACHIAL; BG TOTAL HEMOGLOBIN 8.9 g/dL (12.0-18.0); BG VENT MODE NASAL CANNULA
[2018-11-02] MEDS ORDERED: LEVOFLOXACIN 500MG PREMIX 100 ML IV NR (13:00)
[2018-11-02] MEDS ORDERED: DIPHENHYDRAMINE 50MG/ML VIAL IV PRN (13:45)
[2018-11-02] MEDS ORDERED: ACETAMINOPHEN 650MG/20.3ML UDC PO PRN (13:45)
[2018-11-02] MEDS ORDERED: HYDROCODONE/ACETAMINOPHEN 5/325MG TABLET PO PRN (13:45)
[2018-11-02] MEDS ORDERED: HYDRALAZINE 20MG/ML VIAL IV PRN (13:45)
[2018-11-02] MEDS ORDERED: ONDANSETRON HCL 4MG/2ML INJ IV PRN (13:45)
[2018-11-02] MEDS ORDERED: ACETAMINOPHEN 650MG SUPP PR PRN (13:45)
[2018-11-02] MEDS: METHYLPREDNISOLONE SOD SUCC 40 MG/ML VIAL IV SCH ×2 (14:11→21:02)
[2018-11-02 15:22] LABS: CLARITY URINE CLEAR (CLEAR); COLOR URINE DARK YELLOW (YELLOW); KETONES URINE NEGATIVE (NEGATIVE); LEUKOCYTE ESTERASE URINE NEGATIVE (NEGATIVE); NITRITE URINE NEGATIVE (NEGATIVE); OCCULT BLOOD URINE 1+ (NEGATIVE); PROTEIN URINE NEGATIVE (NEGATIVE); SPECIFIC GRAVITY URINE 1.011 (1.005-1.030)
[2018-11-02 17:12] LABS: CREATINE KINASE MB FRACTION 3.3 ng/mL (0.5-3.6)
[2018-11-02] MEDS: BUDESONIDE 0.5MG/2ML NEB HHN SCH (20:10)
[2018-11-02] MEDS: ATORVASTATIN CALCIUM 10MG TABLET PO SCH (20:40)
[2018-11-02] MEDS: TAMSULOSIN HCL 0.4MG SR CAPSULE PO SCH (20:40)
[2018-11-03] VITALS (12 sets, daily range): BP systolic 131–172; BP diastolic 60–100
[2018-11-03] MEDS: IPRATROPIUM/ALBUTEROL 0.5-3(2.5)MG/3ML NEB HHN SCH ×6 (00:46→21:02)
[2018-11-03] MEDS: METHYLPREDNISOLONE SOD SUCC 40 MG/ML VIAL IV SCH ×3 (05:14→21:27)
[2018-11-03] MEDS: FUROSEMIDE 40MG/4ML VIAL IVP SCH ×3 (05:14→21:27)
[2018-11-03] MEDS: PANTOPRAZOLE 40MG DR TABLET PO SCH (06:40)
[2018-11-03 07:06] LABS: HEMOGLOBIN 8.9 g/dL (14.0-18.0); MEAN CORPUSCULAR HEMOGLOBIN 27.4 pg (28.0-32.0); MEAN CORPUSCULAR VOLUME 83.3 fL (80.0-94.0); PLATELET 125 x1000/uL (130-400); RED BLOOD CELL COUNT 3.24 mill/uL (4.7-6.1); RED CELL DISTRIBUTION WIDTH 27.5 % (11.6-14.6)
[2018-11-03] MEDS: BLOOD SUGAR DIAGNOSTIC STRIP TEST SCH ×4 (07:58→21:41)
[2018-11-03] MEDS: INSULIN LISPRO 100 UNITS/ML SUBCUT SCH ×4 (08:13→22:08)
[2018-11-03] MEDS: BUDESONIDE 0.5MG/2ML NEB HHN SCH ×2 (09:08→21:02)
[2018-11-03] MEDS: FOLIC ACID 1MG TABLET PO SCH (09:10)
[2018-11-03] MEDS: FOLIC ACID/VITAMIN B COMP W-C TABLET PO SCH (09:10)
[2018-11-03] MEDS: ASPIRIN 81MG TABLET PO SCH (09:10)
[2018-11-03] MEDS: DOCUSATE SODIUM 100MG CAPSULE PO SCH ×2 (09:10→17:39)
[2018-11-03] MEDS: HEPARIN 5000 UNITS/ML VIAL SUBCUT SCH (09:11)
[2018-11-03 09:56] LABS: BG BASE EXCESS -3.4 mmol/L (-2.0-2.0); BG CARBOXYHEMOGLOBIN 0.4 % (0.5-1.5); BG DEOXYHEMOGLOBIN 7.4 % (0.0-5.0); BG FRACTION INSPIRED OXYGEN 21; BG HCO3 ACT 21.6 mmol/L (22.0-26.0); BG METHEMOGLOBIN 0.2 % (0.0-1.5); BG OXYGEN SATURATION 92.6 % (92.0-98.5); BG PCO2 38.4 mmHg (35.0-45.0); BG PH 7.367 (7.350-7.450); BG PO2 69.8 mmHg (75.0-100.0); BG SAMPLE SITE RIGHT BRACHIAL; BG TOTAL HEMOGLOBIN 9.9 g/dL (12.0-18.0); BG VENT MODE ROOM AIR
[2018-11-03] MEDS: LEVOFLOXACIN 250MG PREMIX 50 ML IV SCH (10:39)
[2018-11-03] MEDS: ACETYLCYSTEINE 100MG/ML 10% VIAL 4ML INH SCH (13:32)
[2018-11-03] MEDS: GUAIFENESIN 600MG ER TABLET PO SCH (21:25)
[2018-11-03] MEDS: ATORVASTATIN CALCIUM 10MG TABLET PO SCH (21:25)
[2018-11-03] MEDS: TAMSULOSIN HCL 0.4MG SR CAPSULE PO SCH (21:27)
[2018-11-04] VITALS (11 sets, daily range): BP systolic 116–167; BP diastolic 22–105
[2018-11-04] MEDS: IPRATROPIUM/ALBUTEROL 0.5-3(2.5)MG/3ML NEB HHN SCH ×6 (00:30→20:23)
[2018-11-04] MEDS: ACETYLCYSTEINE 100MG/ML 10% VIAL 4ML INH SCH ×3 (00:31→15:56)
[2018-11-04] MEDS: METHYLPREDNISOLONE SOD SUCC 40 MG/ML VIAL IV SCH ×3 (05:25→22:13)
[2018-11-04] MEDS: FUROSEMIDE 40MG/4ML VIAL IVP SCH ×3 (05:25→22:13)
[2018-11-04] MEDS: PANTOPRAZOLE 40MG DR TABLET PO SCH (06:27)
[2018-11-04 06:36] LABS: HEMATOCRIT 27.3 % (42.0-52.0); MEAN CORPUSCULAR HEMOGLOBIN 27.6 pg (28.0-32.0); MEAN CORPUSCULAR VOLUME 83.2 fL (80.0-94.0); PLATELET 120 x1000/uL (130-400); RED BLOOD CELL COUNT 3.28 mill/uL (4.7-6.1)
[2018-11-04] MEDS: BUDESONIDE 0.5MG/2ML NEB HHN SCH ×2 (07:26→20:26)
[2018-11-04] MEDS: BLOOD SUGAR DIAGNOSTIC STRIP TEST SCH ×4 (08:13→21:00)
[2018-11-04] MEDS: INSULIN LISPRO 100 UNITS/ML SUBCUT SCH ×4 (08:18→21:00)
[2018-11-04] MEDS: DOCUSATE SODIUM 100MG CAPSULE PO SCH ×2 (08:45→17:31)
[2018-11-04] MEDS: FOLIC ACID/VITAMIN B COMP W-C TABLET PO SCH (08:45)
[2018-11-04] MEDS: ASPIRIN 81MG TABLET PO SCH (08:45)
[2018-11-04] MEDS: FOLIC ACID 1MG TABLET PO SCH (08:46)
[2018-11-04] MEDS: GUAIFENESIN 600MG ER TABLET PO SCH ×2 (08:46→22:14)
[2018-11-04] MEDS: LEVOFLOXACIN 250MG PREMIX 50 ML IV SCH (10:15)
[2018-11-04 11:26] LABS: BG BASE EXCESS -3.8 mmol/L (-2.0-2.0); BG CARBOXYHEMOGLOBIN 0.2 % (0.5-1.5); BG DEOXYHEMOGLOBIN 6.5 % (0.0-5.0); BG FRACTION INSPIRED OXYGEN 21; BG HCO3 ACT 20.8 mmol/L (22.0-26.0); BG METHEMOGLOBIN 0.1 % (0.0-1.5); BG OXYGEN SATURATION 93.5 % (92.0-98.5); BG OXYHEMOGLOBIN 93.2 % (94.0-97.0); BG PCO2 35.5 mmHg (35.0-45.0); BG PH 7.385 (7.350-7.450); BG PO2 69.6 mmHg (75.0-100.0); BG SAMPLE SITE RIGHT RADIAL; BG TOTAL HEMOGLOBIN 9.8 g/dL (12.0-18.0); BG VENT MODE ROOM AIR
[2018-11-04] MEDS: TAMSULOSIN HCL 0.4MG SR CAPSULE PO SCH (22:13)
[2018-11-04] MEDS: ATORVASTATIN CALCIUM 10MG TABLET PO SCH (22:13)
[2018-11-05] VITALS (14 sets, daily range): BP systolic 116–155; BP diastolic 63–95
[2018-11-05] MEDS: IPRATROPIUM/ALBUTEROL 0.5-3(2.5)MG/3ML NEB HHN SCH ×6 (00:19→20:26)
[2018-11-05] MEDS: ACETYLCYSTEINE 100MG/ML 10% VIAL 4ML INH SCH ×3 (00:19→15:20)
[2018-11-05] MEDS: FUROSEMIDE 40MG/4ML VIAL IVP SCH ×3 (06:26→21:02)
[2018-11-05] MEDS: METHYLPREDNISOLONE SOD SUCC 40 MG/ML VIAL IV SCH ×3 (06:26→21:02)
[2018-11-05] MEDS: BLOOD SUGAR DIAGNOSTIC STRIP TEST SCH ×4 (06:26→21:02)
[2018-11-05 06:38] LABS: HEMATOCRIT. 26.5 % (42.0-52.0); HEMOGLOBIN. 8.7 g/dL (14.0-18.0); MEAN CORPUSCULAR HEMOGLOBIN 27.1 pg (28.0-32.0); MEAN CORPUSCULAR VOLUME 82.4 fL (80.0-94.0); MEAN PLATELET VOLUME 8.8 fl (7.4-10.4); PLATELET 123 x1000/uL (130-400); RED BLOOD CELL COUNT 3.22 mill/uL (4.7-6.1); RED CELL DISTRIBUTION WIDTH 27.1 % (11.6-14.6)
[2018-11-05] MEDS: BUDESONIDE 0.5MG/2ML NEB HHN SCH (07:14)
[2018-11-05 07:41] LABS: CHLORIDE 105 mEq/L (98-107)
[2018-11-05] MEDS: ASPIRIN 81MG TABLET PO SCH (08:34)
[2018-11-05] MEDS: DOCUSATE SODIUM 100MG CAPSULE PO SCH ×2 (08:34→17:26)
[2018-11-05] MEDS: INSULIN LISPRO 100 UNITS/ML SUBCUT SCH ×4 (08:34→21:00)
[2018-11-05] MEDS: GUAIFENESIN 600MG ER TABLET PO SCH ×2 (08:35→21:01)
[2018-11-05] MEDS: FOLIC ACID 1MG TABLET PO SCH (08:35)
[2018-11-05] MEDS: FOLIC ACID/VITAMIN B COMP W-C TABLET PO SCH (08:35)
[2018-11-05] MEDS: FAMOTIDINE 20MG TABLET PO SCH (08:35)
[2018-11-05] MEDS: LEVOFLOXACIN 250MG PREMIX 50 ML IV SCH (11:14)
[2018-11-05 12:16] LABS: PLATELET ESTIMATE SLIGHTLY DECREASED
[2018-11-05] MEDS: ATORVASTATIN CALCIUM 10MG TABLET PO SCH (21:01)
[2018-11-05] MEDS: TAMSULOSIN HCL 0.4MG SR CAPSULE PO SCH (21:02)
[2018-11-06] VITALS: BP 169/77
[2018-11-06] MEDS: IPRATROPIUM/ALBUTEROL 0.5-3(2.5)MG/3ML NEB HHN SCH ×5 (00:26→15:35)
[2018-11-06] MEDS: ACETYLCYSTEINE 100MG/ML 10% VIAL 4ML INH SCH ×3 (00:26→15:35)
[2018-11-06 01:00] VITALS: BP 148/95
[2018-11-06 04:00] VITALS: BP 130/70
[2018-11-06] MEDS: METHYLPREDNISOLONE SOD SUCC 40 MG/ML VIAL IV SCH ×2 (06:12→14:19)
[2018-11-06] MEDS: BLOOD SUGAR DIAGNOSTIC STRIP TEST SCH ×2 (06:12→11:14)
[2018-11-06] MEDS: FUROSEMIDE 40MG/4ML VIAL IVP SCH ×2 (06:12→14:19)
[2018-11-06] MEDS: INSULIN LISPRO 100 UNITS/ML SUBCUT SCH ×2 (06:14→12:27)
[2018-11-06] MEDS: FAMOTIDINE 20MG TABLET PO SCH (08:17)
[2018-11-06] MEDS: FOLIC ACID/VITAMIN B COMP W-C TABLET PO SCH (08:17)
[2018-11-06] MEDS: DOCUSATE SODIUM 100MG CAPSULE PO SCH ×2 (08:17→16:48)
[2018-11-06] MEDS: FOLIC ACID 1MG TABLET PO SCH (08:17)
[2018-11-06] MEDS: GUAIFENESIN 600MG ER TABLET PO SCH (08:17)
[2018-11-06] MEDS: ASPIRIN 81MG TABLET PO SCH (08:17)
[2018-11-06] MEDS ORDERED: LEVOFLOXACIN 250MG TABLET PO SCH (11:00)
[2018-11-06 12:00] VITALS: BP 117/66
[2018-11-06 13:32] VITALS: BP 117/66
[2018-11-06 16:00] VITALS: BP 160/77
[2018-11-07] MEDS ORDERED: PREDNISONE 5MG TABLET PO SCH (09:00)
[2018-11-07] MEDS ORDERED: FUROSEMIDE 40MG TABLET PO SCH (09:00)
== END 2018-11-06 17:50 | DRG 291 ==
LOC: ER 14:46 → 5EST 16:53 → EDBEDREQSVC 16:57 → EDBEDREQTM 16:57 → EDBEDREQ 16:57 → ENRESERV 22:00 → 5EST 11-02 00:01 → 8WST 11-06 03:07
PROVIDERS: ADMIT Internal Medicine; ATTEND Internal Medicine
PROC: 5A09357 Assistance with Respiratory Ventilation, Less than 24 Consecutive Hours, Continuous Positive Airway Pressure (ICD-10-PCS; principal; 2018-11-01)
PROC: 5A09357 Assistance with Respiratory Ventilation, Less than 24 Consecutive Hours, Continuous Positive Airway Pressure (ICD-10-PCS; 2018-11-03)
PROC: 5A09357 Assistance with Respiratory Ventilation, Less than 24 Consecutive Hours, Continuous Positive Airway Pressure (ICD-10-PCS; 2018-11-04)
DX: I13.0 Hypertensive heart and chronic kidney disease with heart failure and stage 1 through stage 4 chronic kidney disease, or unspecified chronic kidney disease (principal); J18.9 Pneumonia, unspecified organism; I50.43 Acute on chronic combined systolic (congestive) and diastolic (congestive) heart failure; J96.00 Acute respiratory failure, unspecified whether with hypoxia or hypercapnia; L97.909 Non-pressure chronic ulcer of unspecified part of unspecified lower leg with unspecified severity; N18.9 Chronic kidney disease, unspecified; D69.6 Thrombocytopenia, unspecified; M10.9 Gout, unspecified; D64.9 Anemia, unspecified; E11.22 Type 2 diabetes mellitus with diabetic chronic kidney disease; E11.622 Type 2 diabetes mellitus with other skin ulcer; E78.5 Hyperlipidemia, unspecified; I25.10 Atherosclerotic heart disease of native coronary artery without angina pectoris; N40.0 Benign prostatic hyperplasia without lower urinary tract symptoms; E11.51 Type 2 diabetes mellitus with diabetic peripheral angiopathy without gangrene; Z90.49 Acquired absence of other specified parts of digestive tract; Z79.4 Long term (current) use of insulin; Z95.0 Presence of cardiac pacemaker
CPT/HCPCS: 36415; 36600; 71045; 76770; 80048; 80061; 82375; 82550; 82553; 82805; 82962; 83880; 84153; 84484; 84550; 85027; 87070; 87077; 87186; 87804; 93005; 93306; 93970; 93971; 94640; 94660; 96374; 97110; 97162; 97530; 99291; J0360; J1644; J1815; J1940; J1956; J2920; J7050; J7608; J7620; J7626; A4315; G0103